=== PATIENT | female | born 1975 | race Caucasian/White ===

== ENCOUNTER 2023-04-13 07:58 | Outpatient (RCR) | payer BC, SELFPAY | END 2023-06-02 17:00 | disposition home or self-care (01) | LOC: HO.WCC 07:58 | PROVIDERS: PCP Family Medicine; Referring Provider Family Medicine; Visit Provider Physician Assistant | DX: Z09 Encounter for follow-up examination after completed treatment for conditions other than malignant neoplasm (principal); R73.03 Prediabetes; K50.813 Crohn's disease of both small and large intestine with fistula; I11.0 Hypertensive heart disease with heart failure; I50.32 Chronic diastolic (congestive) heart failure; F17.210 Nicotine dependence, cigarettes, uncomplicated; Z87.2 Personal history of diseases of the skin and subcutaneous tissue; Z86.711 Personal history of pulmonary embolism; Z79.2 Long term (current) use of antibiotics; Z79.899 Other long term (current) drug therapy | CPT/HCPCS: 29580; 97597; 97598; 99212; 99213 ==